=== PATIENT | female | born 1960 | race Caucasian/White ===

== ENCOUNTER 2020-03-14 15:43 | Emergency (ER) | payer BC ==
[~2020-03-14] VITALS: Ht 167.6 cm; Wt 87.2 kg
[~2020-03-14 15:43] MED LIST: ADVAIR 500-501 EACH INH; ALBUTEROL S5 MG/1 ML INH; COMBIVENT INH14.7 GM INH; CRESTOR20 MG PO; CYCLOBENZAPRINE10 MG PO; GABAPENTIN300 MG PO; HYDROCHLOROTH12.5 MG PO; JANUVIA100 MG PO; LANTUS100 UNITS/ SUB-Q; LISINOPRIL20 MG PO; METFORMIN HCL1000 MG PO; NAPROXEN500 MG PO; ONDANSETRON ODT8 MG PO
[2020-03-14] MEDS ORDERED: METOPROLOL SUCC50 MG PO (16:02)
[2020-03-14] MEDS ORDERED: METOPROLOL SUC100 MG PO (18:06)
--- NOTE | 2020-03-15 00:02 | EKG ---
[facility] [address] [place] [address] Signed Sinus tachycardia with premature atrial complexes Septal infarct , age undetermined Abnormal ECG No previous ECGs available Confirmed by SANYA DUMAS MD ([id number] on 03/15/2020 12:01:44 AM Electronically Signed By: SANYA DUMAS MD 03/15/20 0002 PATIENT NAME: THIERNO TEMPLE Yuki Electrocardiogram DATE OF : 64 PHYSICIAN: SANYA DUMAS MD REPORT #: [id number] REPORT IS CONFIDENTIAL AND NOT TO BE RELEASED WITHOUT AUTHORIZATION
== END 2020-03-14 18:40 | disposition home or self-care (01) ==
LOC: ED 15:43
DX: I10 Essential (primary) hypertension (principal); R00.2 Palpitations; E10.9 Type 1 diabetes mellitus without complications; E78.00 Pure hypercholesterolemia, unspecified; F17.200 Nicotine dependence, unspecified, uncomplicated; Z88.8 Allergy status to other drugs, medicaments and biological substances; Z88.5 Allergy status to narcotic agent; Z79.899 Other long term (current) drug therapy; Z79.4 Long term (current) use of insulin
CPT/HCPCS: 71045; 80053; 83735; 84484; 85025; 85379; 93005; 93010; 96374; 99285-25; J7030